=== PATIENT | male | born 1965 | race Hispanic/Latino ===

== ENCOUNTER → 2016-05-20 | Day surgery (SDC) | payer OTHER ==
[2016-05-20] VITALS (11 sets, daily range): BP systolic 100–133; BP diastolic 63–90; PULSE 61–72; RESP 11–17; O2SAT 93–98
[~2016-05-20] VITALS: Ht 165.1 cm; Wt 106.4 kg
[~2016-05-20] MED LIST: ATEN100T PO; CeFAZolin Inj 2 GM in IV Premix 1 EACH IV ONE; CeFAZolin Inj 2 gm / 50mL D5W IV ONE; Dexamethasone 4 mg/mL Inj IVPUSH PRN; EPHEDrine Sulfate 50 mg/mL Inj IVPUSH PRN; HYDR25TA4 PO; HYDROcodone-APAP 5-325 mg Tablet PO PRN; HYDROmorphone 1 mg/mL Inj IVPUSH PRN; LISI40TA PO; Lactated Ringer's 1,000 ML IV SCH; Lactated Ringer's 500 ML IV PRN; Lidocaine 2%-Epi 1:100,000 20 mL Inj NERVEBLOCK ONE; MELO-253 PO; METF1000 PO; MethylprednisoLONE Depot 80 mg/mL Inj INJ ONE; MetoCLOpramide 5 mg/mL 2 mL Inj IVPUSH PRN; MetoCLOpramide 5 mg/mL 2 mL Inj ONE; Ondansetron 2 mg/mL 2 mL Inj IVPUSH PRN; Ondansetron 2 mg/mL 2 mL Inj ONE; Phenylephrine 10,000 mCg/mL Inj IVPUSH PRN; Propofol 10,000 mCg/mL 20 mL Inj ONE; SIMV20TA4 PO; fentaNYL-PF 50 mCg/mL 2 mL Inj IVPUSH PRN; fentaNYL-PF 50 mCg/mL 2 mL Inj ONE
[2016-05-20] MEDS: Lactated Ringer's 1,000 ML IV SCH ×2 (06:07→10:32)
--- NOTE | 2016-05-20 10:45 | PCM.HPANE ---
Patient Data Surgeon Admitting Provider: Attending Provider:Meliton Cruz MD Primary Care Physician:Columba Knight MD Other Provider:Shirley Wallingham Anesthesia Reason for Visit Right Knee Lateral And Meniscal Tear Ht/WT & BMI Height (Feet): 5 Height (Inches): 5.00 Weight (Kilograms): 106.4 Body Mass Index 39.00 Allergies Coded Allergies: No Known Allergies (Verified , 05/15/16) Past Anesthesia History Anesthesia History: Denies:: Anesthesia Reactions, Malignant Hyperthermia Diabetes History Hx Diabetes?: Yes Type of Diabetes: Type II Glycemic Control: Oral Medication Current Bedside Blood Glucose: 115 MRSA 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) Medications Hypertension Medication: Yes (LISINOPRIL,HCTZ) Home Meds Incl Beta Juan Carlos: Yes (Atenolol 100mg) Date Beta Juan Carlos Taken: May 20, 2016 Time Beta Juan Carlos Taken: 0630 Reported Medications Meloxicam 15 Mg [id number] Mg PO DAILY 30 Days Ref 0 05/15/16 Hydrochlorothiazide 25 Mg [id number] Mg PO DAILY 30 Days Ref 0 05/15/16 Simvastatin 20 Mg [id number] Mg PO HS Ref 0 09/27/15 Metformin (Glucophage)1,000 Mg Tablet1,000 Mg PO BID Ref 0 09/27/15 Lisinopril 40 Mg [id number] Mg PO DAILY 30 Days Ref 0 09/27/15 Atenolol 100 Mg [id number] Mg PO BID Ref 0 09/27/15 Discontinued Reported Medications Chlorthalidone 25 Mg Vfsdtx55.5 Mg PO DAILY #30 TABLET 09/27/15 Hydrocodone-Acetaminophen 5-325 mg 1 Each Tablet1 Tablet PO Q4H PRN For Pain Ref 0 09/27/15 History History of ENT Problems?: Yes HEENT History: Positive for:: Sinus Problem (SEASONAL ALLERGIES) Hx of Heart Problems?: Yes Cardiovascular History: Positive for:: Hypertension (HYPERLIPIDEMIA) Denies:: Heart Murmur Valvular Heart Disease Hx of Respiratory Problem?: Yes Respiratory History: Denies:: Use of C-PAP Machine (SNORES) Hx Neurologic Problems?: Yes Other Neurological Pertinent: HX PERIPHERAL NEUROPATHY Hx of GI Problems?: Yes Other GI Pertinent History: S/P EXC ABD LIPOMA Hx of Problems?: No Male Hx: Denies:: Prostate Problems Scrotal Mass Testicular Surgery Skin History: Denies:: History Skin Disorders? Pressure Ulcers Hx Musculoskeletal Problems?: Yes Musculoskeletal History: Positive for:: Musculoskeletal Trauma (S/P LT KNEE SCOPE 09/2015 RT KNEE MED/LAT MENISCAL TEARS=CURRENT PROBLEM) Hx of Psycho/Social Problems?: No Hx Surgeries?: Yes (EXC ABD LIPOMA,LT KNEE SCOPE) Hx Any Other Health Problems?: Yes Other History: Denies:: Cancer Endocrine Disease Hospitalization Thyroid Disease History Blood Transfusions: Denies:: Blood Transfusions Hx Diabetes: YesBedside Blood Glucose: 115 Hx Alcohol Use: NoHx Substance Use: No Smoking Status: Former Smoker Have You Smoked inLast 12 mo: No Stop/Bang S-Snoring: Do You Snore Loudly: Yes T-Tired: feel tired, fatigued: Yes O-Obsered: Observed not breath: No P-Blood Pressure: treated: Yes B- Body Mass Index > 35 kg/m2: Yes A- Age over 50: No N- Neck Large Circumference: Yes G- Gender Male: Yes LALA Total Score: 6 Risk Assessment Category Category 1A: Patient has history of documented sleep apnea, and HAS NOT received any narcotic, sedative or anesthesia administration during this stay. Category 1B: Patient has history of documented sleep apnea, and HAS received any narcotic , sedative or anesthesia administration during this stay Category 2: Patient has SUSPECTED Obstructive Sleep Apnea, and HAS received any narcotic , sedative or anesthesia administration during this stay. Category 3: Patient has SUSPECTED Obstructive Sleep Apnea and HAS NOT received narcotic, sedative or anesthesia administration during this stay. Category 4: Outpatient in Procedural Areas with known sleep apnea or who screen positive for High Risk via the STOP/BANG questionnaire. Exam Exam Vital Signs Vital Signs Date Time Temp Pulse Resp B/P Pulse Ox O2 Delivery O2 Flow Rate FiO2 05/20/16 08:42 36.0 61 16 133/90 98 Room Air General Appearance: Alert, Oriented X3, Cooperative, No Acute Distress HEENT/AIRWAY: MP 3 Lungs: Clear to Auscultation Heart: Exam Unremarkable Meds/Labs/Diagnostics Admission Meds Current Medications Lactated Ringer's (Lr) 1,000 ml @ 120 mls/hr Q8H20M IV Last administered on t 06:07; Start 05/20/16 at 05:00; Stop 05/20/16 at 13:19 Bedside Blood Glucose: 115 Plan Impression Patient chart reviewed, patient interviewed and anesthestic plan with risks, benefits, and alternatives discussed, and informed consent obtained. NPO Status: 05/19 AT 1999 ASA Physical Status: ASA3 Severe Disease Anesthetic Plan: GA Bene/Risks/Altern/Consents: Yes HP Complete Prior to Induction: Yes Tae Del Toro MD May 20, 2016 08:52
--- NOTE | 2016-05-20 11:43 | PCM.ORTHOB ---
Immediate Operative Note Date of Service: May 20, 2016 Pre Operative Diagnosis Right knee medial and lateral meniscal tears Post Operative Diagnosis Same Procedure Right knee arthroscopic partial medial and partial lateral meniscectomies Surgeon Surgeon: Meliton Cruz MD Assistants: None Findings Right knee medial compartment degenerative tear of the posterior horn of the medial meniscus meniscus extending to the body of the medial meniscus. 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 The anterior cruciate ligament appeared frayed but was otherwise intact and stable to probing. The lateral compartment was remarkable for a degenerative tear of the lateral meniscus extending from the body through the posterior horn. The meniscus had a slightly discoid appearance. The articular surfaces were better preserved in the medial compartment with diffuse grade 1-2 chondromalacia affecting the majority of the weightbearing surface on the tibial side. The lateral femoral condyle weightbearing surface was remarkable for diffuse grade 1 chondromalacia. No loose bodies were noted in the medial or lateral gutters. The patellofemoral compartment was remarkable for diffuse grade 1-2 chondromalacia affecting both sides of the compartment. Grafts, Implants: None Complications There were no periprocedural complications identified. Condition Stable Anesthetic Administered: GA Drains: None Catheters: None Output, Estimated Blood Loss: 2 Blood Admin during surgery: No Surgical Cast or Splint: None Additional Information Tourniquet time 29 minutes Surgical Specimen Removed: No Surgical Specimen sent to Path: No Post Operative Plan The patient will be discharged from daycare surgery when protocol is met. The patient will be allowed to weight-bear as tolerated beginning postop day #1. Patient should resume his preoperative knee strengthening exercises as soon as possible. The patient will be seen in the office for routine wound check on her after postop day #5. The patient will be seen for suture removal on or after postoperative day #12. The patient should be able to resume light activities of daily living by that point. Meliton Cruz MD May 20, 2016 11:43
--- NOTE | 2016-05-20 11:49 | PCM.ORTHOP ---
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 Onset of symptoms were not associated with trauma or change in activities. The patient reports sharp and catching pain on the inside and outside of his knee with loaded flexion, squatting, turning and twisting knee activities. The patient's knee symptoms have not responded to activity modification, the use of anti-inflammatory agents and attempted knee rehabilitation. Preoperative exam of the patient's right knee reveals trace effusion but otherwise full and stable knee range of motion. Tenderness to palpation of the joint lines and positive Bhavani test. Preoperative MRI the patient's right knee reveals large oblique inferior surface tear of the posterior horn of the medial meniscus and a possible discoid lateral meniscus with oblique undersurface tear of the posterior horn. The patient presents for right knee arthroscopic partial medial and partial lateral meniscectomies. Findings Right knee medial compartment degenerative tear of the posterior horn of the medial meniscus meniscus extending to the body of the medial meniscus. 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 The anterior cruciate ligament appeared frayed but was otherwise intact and stable to probing. The lateral compartment was remarkable for a degenerative tear of the lateral meniscus extending from the body through the posterior horn. The meniscus had a slightly discoid appearance. The articular surfaces were better preserved in the medial compartment with diffuse grade 1-2 chondromalacia affecting the majority of the weightbearing surface on the tibial side. The lateral femoral condyle weightbearing surface was remarkable for diffuse grade 1 chondromalacia. No loose bodies were noted in the medial or lateral gutters. The patellofemoral compartment was remarkable for diffuse grade 1-2 chondromalacia affecting both sides of the compartment. Details of Procedure Patient was brought to the OR and given a general anesthetic. Placed in supine position and tourniquet was placed high about the right thigh. Right lower extremity was prepped and draped in usual sterile fashion and tourniquet inflated to 275 mmHg. We placed 2 infrapatellar arthroscopic one lateral for the scope and instruments. We instilled lactated Ringer's with epinephrine and went directly into the medial compartment. We confirmed the presence of a degenerative tear of the medial meniscus extending from the body through the posterior horn and early degenerative changes both sides of the joint. We used a combination of arthroscopic basket biters and arthroscopic shaver to debride the degenerative medial meniscal tear back to stable base and no more loose cartilaginous fragments from the areas of grade 3 chondromalacia on both sides of the joint. We explored the anterior cruciate ligament and found it to be slightly frayed but otherwise intact and stable. The lateral compartment was reviewed. We found a degenerative tear of a partial discoid lateral meniscus extending from the posterior horn into the body. The articular surfaces on both sides of the joint were better preserved in the medial compartment and did not require any chondroplasty. The medial and lateral gutters were reviewed and found to be free of loose bodies. The patellofemoral compartment was reviewed and found to have mild early degenerative changes not requiring chondroplasty. We thoroughly irrigated the knee and removed the scope and instruments. We instilled 30 mL of 2% lidocaine with epinephrine and 40 mg of Depo-Medrol. The arthroscopic portal sites were closed with interrupted 4-0 nylon sutures. The wounds dressed with Xeroform and dry gauze dressings. The tourniquet was deflated and the patient was taken back to PACU in stable and satisfactory condition. There were no complications. She tolerated the procedure well. Grafts, Implants: None Complications There were no periprocedural complications identified. Condition Stable Anesthetic Administered: GA Drains: None Catheters: None Output, Estimated Blood Loss: 2 Blood Admin during surgery: No Surgical Cast or Splint: None Addtional Information Tourniquet time 29 minutes Surgical Specimen Removed: No Specimen sent to Pathology: No Post Operative Plan The patient will be discharged from daycare surgery when protocol is met. The patient will be allowed to weight-bear as tolerated beginning postop day #1. Patient should resume his preoperative knee strengthening exercises as soon as possible. The patient will be seen in the office for routine wound check on her after postop day #5. The patient will be seen for suture removal on or after postoperative day #12. The patient should be able to resume light activities of daily living by that point. copies to: Columba Knight MD; Meliton Cruz MD, Michael G.E MD May 20, 2016 11:48
--- NOTE | 2016-05-20 12:11 | PCM.ANEP1 ---
Post Anesthesia Phase 1 PACU Phase 1 Assessment Date of Service: May 20, 2016 Vital Signs Vital Signs Date Time Temp Pulse Resp B/P Pulse Ox O2 Delivery O2 Flow Rate FiO2 05/20/16 11:50 70 14 103/64 97 Nasal Cannula 2 05/20/16 11:45 67 13 100/68 96 Nasal Cannula 2 05/20/16 11:40 65 14 105/67 97 Nasal Cannula 2 05/20/16 11:35 36.7 72 11 109/63 93 Room Air 05/20/16 08:42 36.0 61 16 133/90 98 Room Air Anesthetic Administered: GA Level of Alertness: Awake, talking CAT's with Equal Strength: Yes Pain: No Nausea or Vomiting: No Oxygen Delivery: Room Air Lungs: Clear to Auscultation Dermatome Level: Full Sensation Tae Del Toro MD May 20, 2016 12:11
--- NOTE | 2016-05-20 12:12 | PCM.ANEP2 ---
Post Anesthesia Evaluation ASA/CMS Post Anesthesia VS in Patient's Normal Range?: Yes Resp Stable; Airway Patent?: Yes CV Function & Hydration Stable: Yes Mental Status Recovered?: Yes Pain control Satisfactory?: Yes N/V Control Satisfactory?: Yes Tae Del Toro MD May 20, 2016 12:12
== END | disposition home or self-care (01) ==
LOC: SAS 07:57
PROVIDERS: ATTEND Orthopaedic Surgery
DX: M23.321 Other meniscus derangements, posterior horn of medial meniscus, right knee (principal); M23.351 Other meniscus derangements, posterior horn of lateral meniscus, right knee; M22.41 Chondromalacia patellae, right knee; M25.561 Pain in right knee; E11.9 Type 2 diabetes mellitus without complications; I10 Essential (primary) hypertension; E78.5 Hyperlipidemia, unspecified; G62.9 Polyneuropathy, unspecified; E66.9 Obesity, unspecified; Z68.39 Body mass index [BMI] 39.0-39.9, adult; Z79.84 Long term (current) use of oral hypoglycemic drugs
CPT/HCPCS: 29881; J0690; J1040; J2405; J2765; J3010; J7120